=== PATIENT | male | born 2000 | race Caucasian/White ===

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

== ENCOUNTER 2025-07-10 00:03 | Emergency (ER) | payer SELFPAY | END 2025-07-10 01:20 | disposition home or self-care (01) | LOC: ERS 00:03 | DX: R07.89 Other chest pain (principal); F17.200 Nicotine dependence, unspecified, uncomplicated | CPT/HCPCS: 71045; 93005; 96372 ==